=== PATIENT | female | born 1980 | race Caucasian/White ===

== ENCOUNTER → 2022-02-16 | Outpatient (CLI) | payer MEDICAID ==
[~2022-02-16] MED LIST: ACHD5005 PO; DESV25TA PO; DOCU100C37 PO; GLBR2.5T PO; GLYB1.253 PO; IBUP-1773 PO
[2022-02-16 14:14] VITALS: BP 119/92
--- NOTE | 2022-02-16 16:11 | Cardiology Stress Test Report ---
Stress Test Report Date of Procedure/Referring: Date of Procedure: Feb 16, 2022 PCP Ronna Landin MD Admitting Physician Admitting Physician: Attending Physician: Ronna Landin MD Indications: CP Baseline Heart Rate: 88 Baseline Blood Pressure: Blood Pressure Systolic: 119 Blood Pressure Diastolic: 92 Baseline EKG: Baseline EKG: NSR Summary/Conclusion: Summary: In summary, the patient started exercising with a baseline heart rate, blood pressure and EKG mentioned above Patient was able to exercise for a total of 5 minutes on Osvaldo protocol, METs 7 Maximum heart rate 159 Maximum blood pressure 192/72 Stress EKG, Minimal nondiagnostic changes Recovery EKG , Return to baseline Conclusion: 1. Good exercise tolerance for a total of 5 minutes on Osvaldo protocol, 7 METs, achieving 88 percent of maximum expected heart rate 2. Minimal nondiagnostic EKG changes with exercise returned to baseline during recovery 3. No arrhythmia was noted Copy Copies To 1: RONNA LANDIN MD, BASHAR J MD Feb 16, 2022 16:10
== END ==
LOC: CARD 13:00
PROVIDERS: ATTEND Family Medicine
DX: R07.9 Chest pain, unspecified (principal)
CPT/HCPCS: 93017

== ENCOUNTER 2022-11-10 05:36 | Outpatient (CLI) | payer MEDICAID ==
[~2022-11-10] VITALS: Ht 167.7 cm; Wt 104.5 kg
[~2022-11-10 05:36] MED LIST changes: +BUPR-105 PO; +DESV100T16 PO; +FERR325T24 PO; +FEXO180T84 PO; +METF-846 PO; +SEMA1.7P SQ
== END 2022-11-15 08:53 | disposition home or self-care (01) ==
LOC: PREOP 05:36
PROVIDERS: ATTEND Surgery
DX: Z01.818 Encounter for other preprocedural examination (principal)

== ENCOUNTER 2022-11-17 09:05 | Day surgery (SDC) | payer MEDICAID ==
[2022-11-17] VITALS (10 sets, daily range): BP systolic 101–127; BP diastolic 65–87
[~2022-11-17] VITALS: Ht 67.7 cm; Wt 104.5 kg
[2022-11-17] MEDS ORDERED: ceFAZolin INJECTION 2,000 MG in NS (IVPB) 50 ML IV ONE (09:30)
[2022-11-17] MEDS ORDERED: LACTATED RINGERS 1,000 ML IV PRN (09:30)
[2022-11-17] MEDS ORDERED: BUP/EPI 0.5% 1:200,000 (SENSORCAINE) 30 ML VIAL ONE (09:56)
--- NOTE | 2022-11-17 10:04 | Progress Note-Pre Operative ---
Pre-Operative Progress Note Date H&P Reviewed: Nov 17, 2022 Time H&P Reviewed: 10:03 History & Physical: H&P Reviewed, Patient Examed, No changes noted Pre-Operative Diagnosis: hemorrhoid ZACK ANTUNEZ DO Nov 17, 2022 10:04
[2022-11-17] MEDS ORDERED: SEVOFLURANE (ULTANE) 15 ML INHAL SOLN ONE (10:22)
[2022-11-17] MEDS ORDERED: ONDANSETRON 4 MG/2 ML (SDV) Z0FRAN ONE (10:22)
[2022-11-17] MEDS ORDERED: LIDOCAINE PF 2% 5 ML (XYLOCAINE) VIAL ONE (10:22)
[2022-11-17] MEDS ORDERED: proPOfol 200 MG/20 ML (DIPRIVAN) VIAL IV ONE (10:22)
[2022-11-17] MEDS ORDERED: fentaNYL INJ 100 MCG/2 ML AMP ONE (10:22)
[2022-11-17] MEDS ORDERED: MIDAZOLAM 2 MG/2 ML (VERSED) VIAL ONE (10:23)
[2022-11-17] MEDS ORDERED: ACHD5005 PO (11:02)
[2022-11-17] MEDS ORDERED: DOCU-143 PO (11:02)
--- NOTE | 2022-11-17 11:04 | Discharge Inst-Simple/Standard ---
Discharge Inst-Standard Discharge Medications New, Converted or Re-Newed RX: Transmitted to Pharmacy Patient Instructions/Follow Up Plan of Care/Instructions/FU: 2 weeks [place] Activity as Tolerated: No Discharge Diet: Regular Diet Other Inst to Patient Follow up Appt: Make appointment for 2 week. Instructions: No lifting greater than 10 pounds. No strenuous activity. May shower in 24 hours, no tub bath or soaking. Use incentive spirometer at home as directed. No Smoking Skin/Wound Care: Sitz bath twice a day and after bowel movements, keep area clean and dry. If anal plug not out in 24 hours, apply gentle traction and remove it. Symptoms to Report: Appetite Changes, Extremity Discoloration, Numbness/Tingling, Swelling Increased, Bleeding Excessive, Eyesight Changes, Pain Increased, Urine Color Change, Constipation(Persistent), Fever over 101 degree F, Pain/Pressure in chest, Urinating Difficulty, Cough Up/Vomit Blood, Heart Beat Irreg/Pounding, Pain/Pressure in jaw, Vaginal Bleeding Increase, Cramps in feet or legs, Lightheadedness, Pain/Pressure in shoulder, Diarrhea(Persistent), Memory Changes Suddenly, Questions/Concerns, Weight gain consecutive days, Dizziness/Fainting, Nausea/Vomiting, Shortness of Breath, Weight gain over 2 pounds If questions or concerns contact your physician Or seek help at emergency department. ZACK ANTUNEZ DO Nov 17, 2022 11:04
--- NOTE | 2022-11-17 11:05 | Progress Note-Post Operative ---
Post-Operative Progess Note Surgeon (s)/Mining Technician (s) Surgeon ZACK ANTUNEZ DO Mining Technician: na Pre-Operative Diagnosis hemorrhoid Post-Operative Diagnosis same Procedure & Operative Findings Date of Procedure 11/17/22 Procedure Performed/Findings exam under anesthesia, right anterior prolapsed hemorrhoidectomy Anesthesia Type general Estimated Blood Loss Estimated blood loss (mL): minimal Specimens/Packing Specimens Removed right anterior prolapsed hemorrhoid Packing: anal plug ZACK ANTUNEZ DO Nov 17, 2022 11:05
--- NOTE | 2022-11-17 11:07 | Anesthesia-General Post-Op ---
General Patient Condition Mental Status/LOC: Same as Preop Cardiovascular: Satisfactory Nausea/Vomiting: Absent Respiratory: Satisfactory Pain: Controlled Complications: Absent Post Op Complications Complications None Follow Up Care/Instructions Patient Instructions None needed. Anesthesia/Patient Condition Patient Condition Patient is doing well, no complaints, stable vital signs, no apparent adverse anesthesia problems. No complications reported per nursing. MARY SINGH CRNA Nov 17, 2022 11:07
[2022-11-17] MEDS ORDERED: fentaNYL INJ 100 MCG/2 ML AMP IVP ONE (11:30)
[2022-11-17] MEDS ORDERED: ONDANSETRON 4 MG/2 ML (SDV) Z0FRAN IVP PRN (11:30)
[2022-11-17] MEDS ORDERED: morphine INJ 10 MG/ML 1ML (SYR OR VIAL) IVP ONE (11:30)
--- NOTE | 2022-11-17 22:24 | OPERATIVE REPORT ---
DATE OF SERVICE: 11/17/2022 PREOPERATIVE DIAGNOSIS: Hemorrhoids. POSTOPERATIVE DIAGNOSIS: Hemorrhoids. PROCEDURE: Exam under anesthesia, right anterior prolapsed hemorrhoidectomy. SURGEON: Zack Bear DO ANESTHESIA: General. ESTIMATED BLOOD LOSS: Minimal. COMPLICATIONS: None. SPECIMEN: Right anterior prolapsed hemorrhoid. INDICATIONS: The patient is a 41-year-old female with a hemorrhoid that she would like to have removed. She understands risks and benefits of procedure and wishes to proceed. Consent was signed and on chart. DESCRIPTION OF PROCEDURE: The patient was taken to the operating suite, placed in lithotomy position. Colonoscopy was performed. Digital rectal exam was performed noting a right anterior prolapsed hemorrhoid. No other palpable polyps, masses or ulcerations. Dittmar retractor was inserted into the rectum, noting the prolapsed right anterior hemorrhoid. No other pathology noted. Bilateral pudendal block was performed. The hemorrhoid was grasped, slightly retracted and a Harmonic Focus was then used to amputate at base of the hemorrhoid. Hemostasis was achieved. Again noting no other pathology and anal plug of Gelfoam and Vaseline gauze was made and inserted into the anus to apply slight pressure for continued hemostasis. The patient was taken to the recovery room in stable condition. Job ID: [id number] DocumentID: [id number] Dictated Date: 11/17/2022 19:01:56 Winch Truck Operator Date: 11/17/2022 22:21:00 Dictated By: ZACK BEAR DO [facility]
== END 2022-11-17 13:00 | disposition home or self-care (01) ==
LOC: SDC 09:05
PROVIDERS: ATTEND Surgery
DX: K64.4 Residual hemorrhoidal skin tags (principal); E66.01 Morbid (severe) obesity due to excess calories; Z87.891 Personal history of nicotine dependence; Z68.45 Body mass index [BMI] 70 or greater, adult
CPT/HCPCS: 84703; 87081; 88304